=== PATIENT | female | born 1930 | race Caucasian/White ===

== ENCOUNTER 2017-02-14 18:36 | Emergency (ER) | payer OTHER ==
[~2017-02-14] VITALS: Ht 162.6 cm; Wt 52.4 kg
[2017-02-14 19:12] LABS: HEMATOCRIT 47.9 % (34.6-47.8); HEMOGLOBIN 16.2 g/dL (11.7-16.4); WHITE BLOOD COUNT 7.2 x10^3/uL (3.4-10)
[2017-02-14 19:22] LABS: BLOOD UREA NITROGEN 16 mg/dL (7-18)
[2017-02-14] MEDS ORDERED: OXYMETAZOLINE NASAL SPRAY 0.05%, 15ML NAS ONE (20:00)
[2017-02-14] MEDS ORDERED: SILVER NITRATE STICK TP ONE (20:01)
[2017-02-14 20:53] VITALS: BP 175/88
== END 2017-02-14 20:54 | disposition home or self-care (01) ==
LOC: ED 20:25
DX: R04.0 Epistaxis (principal); J44.9 Chronic obstructive pulmonary disease, unspecified
CPT/HCPCS: 30901; 36415; 80048; 82040; 85025; 99284

== ENCOUNTER 2017-03-12 16:42 | Inpatient (IN) | payer OTHER ==
[~2017-03-12] VITALS: Ht 160 cm; Wt 48.2 kg
[2017-03-12] MEDS ORDERED: methylPREDNISolone SOD SUCC 125 MG/2 ML IVP ONE (17:30)
[2017-03-12] MEDS ORDERED: SODIUM CHLORIDE FLUSH 10ML SYR IVF ONE (17:30)
[2017-03-12] MEDS ORDERED: AZITHROMYCIN 500 MG in SODIUM CHLORIDE 0.9% 250 ML IVPB ONE (17:30)
[2017-03-12] MEDS ORDERED: methylPREDNISolone SOD SUCC 125 MG/2 ML ONE (17:45)
[2017-03-12] MEDS ORDERED: ALBUTEROL/IPRATROPIUM 2.5MG/0.5MG, 3 ML ONE (17:51)
[2017-03-12] MEDS ORDERED: ALBUTEROL/IPRATROPIUM 2.5MG/0.5MG, 3 ML NEB ONE (18:00)
[2017-03-12 18:02] LABS: HEMATOCRIT 43.3 % (34.6-47.8); HEMOGLOBIN 14.9 g/dL (11.7-16.4)
[2017-03-12 18:13] LABS: BLOOD UREA NITROGEN 11 mg/dL (7-18)
[2017-03-12 18:20] LABS: IS PT STATUS REG ER OR PRE ER? YES
[2017-03-12] MEDS ORDERED: UMEC1DIS INH (19:03)
[2017-03-12] MEDS ORDERED: IPRA4AER INH (19:07)
[2017-03-12] MEDS ORDERED: POLYETHYLENE GLYCOL 17 GM PACKET PO PRN (20:00)
[2017-03-12] MEDS: HEPARIN 5,000 UNITS/ML, 1ML SQ SCH (20:00)
[2017-03-12] MEDS ORDERED: ACETAMINOPHEN 325 MG TABLET PO PRN (20:00)
[2017-03-12] MEDS: methylPREDNISolone SOD SUCC 125 MG/2 ML IVPush SCH (20:00)
[2017-03-12] MEDS ORDERED: BISACODYL 10 MG SUPP PR PRN (20:00)
[2017-03-12] MEDS ORDERED: MAGNESIUM SULFATE PMX 2GM/50ML 50 ML IV ONE (20:00)
[2017-03-12] MEDS ORDERED: GUAIFENESIN/DM 200-20MG, 10ML UDC PO PRN (20:00)
[2017-03-12] MEDS ORDERED: ONDANSETRON 2MG/ML, 2ML IVPush PRN (20:00)
[2017-03-12] MEDS ORDERED: hydrALAzine 20 MG/ML, 1ML IVPush PRN (20:00)
[2017-03-12] MEDS ORDERED: AZITHROMYCIN 500 MG in SODIUM CHLORIDE 0.9% 250 ML IV SCH (20:00)
[2017-03-12] MEDS: SODIUM CHLORIDE FLUSH 10ML SYR IVF SCH (21:54)
[2017-03-12 22:07] VITALS: BP 207/94
[2017-03-13 00:31] VITALS: BP 181/80
[2017-03-13] MEDS: methylPREDNISolone SOD SUCC 125 MG/2 ML IVPush SCH ×3 (01:36→14:08)
[2017-03-13] MEDS: HEPARIN 5,000 UNITS/ML, 1ML SQ SCH ×2 (01:36→11:45)
[2017-03-13 05:15] LABS: BLOOD UREA NITROGEN 15 mg/dL (7-18); HEMATOCRIT 46.6 % (34.6-47.8); HEMOGLOBIN 15.8 g/dL (11.7-16.4); WHITE BLOOD COUNT 6.4 x10^3/uL (3.4-10)
[2017-03-13 05:19] LABS: ASPARTATE AMINO TRANSFERASE 18 U/L (15-37)
[2017-03-13 07:52] VITALS: BP 160/64
[2017-03-13] MEDS: SODIUM CHLORIDE FLUSH 10ML SYR IVF SCH (08:15)
[2017-03-13] MEDS ORDERED: FLUTICASONE/VILANTEROL 200-25MCG/INH INH SCH (09:00)
[2017-03-13] MEDS ORDERED: SENNA/DOCUSATE TABLET PO SCH (09:00)
[2017-03-13] MEDS ORDERED: DOXY100T PO (11:56)
[2017-03-13] MEDS ORDERED: METH4TAB2 PO (11:56)
[2017-03-13 12:27] VITALS: BP 186/76
[2017-03-13 14:14] VITALS: BP 169/79
== END 2017-03-13 15:00 | disposition home or self-care (01) | DRG 189 ==
LOC: ED 19:50 → EDIP 20:31 → 3NE 20:33 → DCLOUNGE 03-13 14:52
PROVIDERS: ADMIT Surgery; ATTEND Surgery
DX: J96.01 Acute respiratory failure with hypoxia (principal); J44.1 Chronic obstructive pulmonary disease with (acute) exacerbation; I16.0 Hypertensive urgency; Z66 Do not resuscitate; Z87.891 Personal history of nicotine dependence; Z90.710 Acquired absence of both cervix and uterus; Z91.19 Patient's noncompliance with other medical treatment and regimen
CPT/HCPCS: 36415; 71010; 80048; 80053; 82040; 83605; 83880; 84484; 85025; 87040; 93005; 94640; 96365; 96366; 96375; J0456; J7620; J0360; J2930; J3475; J7050

== ENCOUNTER 2018-03-15 16:36 | Inpatient (IN) | payer OTHER ==
[~2018-03-15] VITALS: Ht 165.1 cm; Wt 50.0 kg
[~2018-03-15 16:36] MED LIST: ACET325T14 PO; CHOL10003 PO; DOCU-131 PO; DOXY100T PO; FLUT200B INH; IBUP-1484 PO; IPRA4AER INH; METH4TAB2 PO; UMEC1DIS INH
[2018-03-15] MEDS ORDERED: MORPHINE SULFATE 4 MG/ML, 1ML ONE ×2 (17:23→18:07)
[2018-03-15] MEDS ORDERED: PROMETHAZINE 25 MG/ML, 1ML ONE (17:23)
[2018-03-15] MEDS ORDERED: PROMETHAZINE 25 MG/ML, 1ML IM ONE (17:30)
[2018-03-15] MEDS: MORPHINE SULFATE 4 MG/ML, 1ML IVPush PRN ×2 (17:32→18:09)
--- NOTE | 2018-03-15 17:37 | NUR ---
PT MEDICATED FOR PAIN AND NAUSEA
[2018-03-15 17:52] LABS: BASOPHILS # (AUTO) 0.04 x10^3/uL (0-0.1); BASOPHILS % (AUTO) 0 % (0-1); EOSINOPHILS # (AUTO) 0.17 x10^3/uL (0-0.4); EOSINOPHILS % (AUTO) 1 % (1-7); LYMPHOCYTES # (AUTO) 0.85 x10^3/uL (1-3.4); LYMPHOCYTES % (AUTO) 7 % (22-44); MD NO; MEAN CORPUSCULAR HEMOGLOBIN 32.8 pg (27.0-34.8); MEAN CORPUSCULAR HGB CONC 35.4 g/dL (32.4-35.8); MEAN CORPUSCULAR VOLUME 92.7 fL (80-100); MEAN PLATELET VOLUME 8.1 fL (7.4-10.4); MONOCYTES # (AUTO) 0.25 x10^3/uL (0.2-0.8); MONOCYTES % (AUTO) 2 % (2-9); NEUTROPHILS # (AUTO) 11.53 x10^3/uL (1.8-6.8); NEUTROPHILS % (AUTO) 90 % (42-75); PLATELET COUNT 282 x10^3/uL (130-400); RED BLOOD COUNT 4.48 x10^6/uL (3.82-5.3); RED CELL DISTRIBUTION WIDTH 13.2 % (9.6-15.2)
[2018-03-15 18:01] LABS: ALBUMIN 4.2 g/dL (3.4-5.0); ANION GAP 7 mmol/L (5-15); CALCIUM 9.2 mg/dL (8.5-10.1); CHLORIDE 98 mmol/L (98-107); CREATININE 0.49 mg/dL (0.55-1.02); INTERNATIONAL NORMALIZED RATIO 1.01 (0.93-1.1); PROTHROMBIN TIME 10.7 Seconds (9.6-11.5)
--- NOTE | 2018-03-15 18:03 | NUR ---
PT PLACED ON BEDPAN
[2018-03-15] MEDS ORDERED: TRELEGY ELLIPTA (18:12)
--- NOTE | 2018-03-15 18:19 | NUR ---
PT MEDICATED FOR PAIN
--- NOTE | 2018-03-15 18:31 | NUR ---
granite fabricator AT BEDSIDE APPLYING SPLINTS
--- NOTE | 2018-03-15 19:33 | NUR ---
REPORT GIVEN TO CHAYITO QUEZADA WILL TRANSFER ONCE PIV IS ESTABLISHED
[2018-03-15] MEDS ORDERED: SODIUM CHLORIDE 0.9% 1,000 ML IV SCH (19:54)
[2018-03-15] MEDS ORDERED: morphine SULFATE 10 MG/ML, 1ML IVPush PRN (20:00)
[2018-03-15] MEDS ORDERED: ONDANSETRON 2MG/ML, 2ML IVPush PRN (20:00)
[2018-03-15] MEDS ORDERED: ACETAMINOPHEN 325 MG TABLET PO PRN (20:00)
[2018-03-15] MEDS ORDERED: PROMETHAZINE 25 MG/ML, 1ML IM PRN (20:00)
[2018-03-15] MEDS ORDERED: hydrALAzine 20 MG/ML, 1ML IVPush PRN (20:00)
[2018-03-15] MEDS ORDERED: LABETALOL 5MG/ML, 20ML IVPush PRN (20:00)
[2018-03-15] MEDS ORDERED: BISACODYL 10 MG SUPP PR PRN (20:00)
[2018-03-15] MEDS ORDERED: ONDANSETRON ODT 4 MG PO PRN (20:00)
[2018-03-15 20:13] VITALS: BP 193/75
[2018-03-15 20:30] LABS: FREE T4 (FREE THYROXINE) 1.26 ng/dL (0.76-1.46); THYROID STIMULATING HORMONE 3.57 mIU/L (0.358-3.740)
[2018-03-15 20:34] LABS: HEMOGLOBIN A1C 5.3 % (4.2-6.3)
[2018-03-15] MEDS: HEPARIN 5,000 UNITS/ML, 1ML SQ SCH (20:58)
[2018-03-15] MEDS ORDERED: FLUTICASONE FUROATE 200MCG/INH INH SCH (21:00)
[2018-03-15 21:12] VITALS: BP 176/89
[2018-03-15] MEDS: HYDROcodone/APAP 5/325 TABLET PO PRN (22:36)
[2018-03-15] MEDS: BUDESONIDE 0.5 MG/2 ML INHA NPPB SCH (23:40)
[2018-03-15] MEDS: ALBUTEROL/IPRATROPIUM 2.5MG/0.5MG, 3 ML NPPB SCH (23:40)
[2018-03-16 01:09] VITALS: BP 102/59
[2018-03-16 02:14] VITALS: BP 131/77
[2018-03-16] MEDS: HEPARIN 5,000 UNITS/ML, 1ML SQ SCH ×3 (04:57→20:56)
[2018-03-16 05:39] LABS: ALANINE AMINOTRANSFERASE 24 U/L (12-78); ALBUMIN 3.2 g/dL (3.4-5.0); ANION GAP 8 mmol/L (5-15); CALCIUM 8.4 mg/dL (8.5-10.1); CHLORIDE 101 mmol/L (98-107); CREATININE 0.58 mg/dL (0.55-1.02)
[2018-03-16 05:42] LABS: ALKALINE PHOSPHATASE 82 U/L (45-117); BILIRUBIN,TOTAL 0.6 mg/dL (0.2-1.0); CHOL/HDL RATIO 2.4; CHOLESTEROL, TOTAL 190 mg/dL (140-239); HDL CHOL % 41 % (28-40); HDL CHOLESTEROL (DIRECT) 78 mg/dL (40-60); LDL CHOLESTEROL,CALCULATED 102 mg/dL (54-169); LDL/HDL RATIO 1.3 (0.5-3.0); TOTAL PROTEIN 6.1 g/dL (6.4-8.2); TRIGLYCERIDES 51 mg/dL (50-200); VLDL CHOLESTEROL 10 mg/dL (0-25)
[2018-03-16 05:53] LABS: MEAN CORPUSCULAR HEMOGLOBIN 30.6 pg (27.0-34.8); MEAN CORPUSCULAR HGB CONC 34.1 g/dL (32.4-35.8); MEAN CORPUSCULAR VOLUME 89.7 fL (80-100); MEAN PLATELET VOLUME 8.4 fL (7.4-10.4); PLATELET COUNT 246 x10^3/uL (130-400); RED BLOOD COUNT 4.43 x10^6/uL (3.82-5.3)
[2018-03-16 06:16] LABS: BASOPHILS # (AUTO) 0.01 x10^3/uL (0-0.1); BASOPHILS % (AUTO) 0 % (0-1); EOSINOPHILS % (AUTO) 0 % (1-7); LYMPHOCYTES # (AUTO) 0.73 x10^3/uL (1-3.4); LYMPHOCYTES % (AUTO) 6 % (22-44); MD SCAN; MONOCYTES # (AUTO) 0.55 x10^3/uL (0.2-0.8); MONOCYTES % (AUTO) 5 % (2-9); NEUTROPHILS # (AUTO) 10.22 x10^3/uL (1.8-6.8); NEUTROPHILS % (AUTO) 89 % (42-75)
[2018-03-16] MEDS: BUDESONIDE 0.5 MG/2 ML INHA NPPB SCH ×2 (08:25→21:00)
[2018-03-16] MEDS: ALBUTEROL/IPRATROPIUM 2.5MG/0.5MG, 3 ML NPPB SCH ×3 (08:25→21:00)
[2018-03-16] MEDS: CHOLECALCIFEROL 1,000 UNIT TABLET PO SCH (08:39)
[2018-03-16] MEDS: SENNA/DOCUSATE TABLET PO SCH (08:39)
[2018-03-16 08:44] VITALS: BP 132/85
[2018-03-16] MEDS: HYDROcodone/APAP 5/325 TABLET PO PRN (09:26)
[2018-03-16] MEDS: GABAPENTIN 300 MG CAPSULE PO PRN (10:25)
[2018-03-16] MEDS ORDERED: OXYcodone IR 5MG TABLET PO PRN ×2 (10:30)
[2018-03-16 14:43] VITALS: BP 96/66
[2018-03-16] MEDS: D5%-0.9% NACL 1,000 ML IV SCH (17:36)
[2018-03-16 19:41] VITALS: BP 125/60
[2018-03-17 00:33] VITALS: BP 138/63
[2018-03-17] MEDS: D5%-0.9% NACL 1,000 ML IV SCH ×3 (02:46→17:29)
[2018-03-17] MEDS: HEPARIN 5,000 UNITS/ML, 1ML SQ SCH ×3 (05:30→21:47)
[2018-03-17 06:05] LABS: MEAN CORPUSCULAR HEMOGLOBIN 30.7 pg (27.0-34.8); MEAN CORPUSCULAR HGB CONC 33.8 g/dL (32.4-35.8); MEAN CORPUSCULAR VOLUME 90.8 fL (80-100); MEAN PLATELET VOLUME 9.3 fL (7.4-10.4); PLATELET COUNT 230 x10^3/uL (130-400); RED BLOOD COUNT 4.06 x10^6/uL (3.82-5.3)
[2018-03-17 06:29] LABS: BASOPHILS # (AUTO) 0.03 x10^3/uL (0-0.1); BASOPHILS % (AUTO) 0 % (0-1); EOSINOPHILS % (AUTO) 0 % (1-7); LYMPHOCYTES # (AUTO) 0.77 x10^3/uL (1-3.4); LYMPHOCYTES % (AUTO) 6 % (22-44); MD SCAN; MONOCYTES # (AUTO) 0.63 x10^3/uL (0.2-0.8); MONOCYTES % (AUTO) 5 % (2-9); NEUTROPHILS # (AUTO) 11.12 x10^3/uL (1.8-6.8); NEUTROPHILS % (AUTO) 89 % (42-75)
[2018-03-17 07:10] VITALS: BP 142/69
[2018-03-17] MEDS: ALBUTEROL/IPRATROPIUM 2.5MG/0.5MG, 3 ML NPPB SCH ×4 (07:46→19:13)
[2018-03-17] MEDS: BUDESONIDE 0.5 MG/2 ML INHA NPPB SCH ×2 (07:47→19:13)
[2018-03-17] MEDS: CHOLECALCIFEROL 1,000 UNIT TABLET PO SCH (09:17)
[2018-03-17] MEDS: SENNA/DOCUSATE TABLET PO SCH (09:17)
[2018-03-17 12:30] VITALS: BP 136/72
[2018-03-17 20:02] VITALS: BP 155/59
[2018-03-18 02:29] VITALS: BP 149/78
[2018-03-18] MEDS: HEPARIN 5,000 UNITS/ML, 1ML SQ SCH ×3 (04:27→23:28)
[2018-03-18] MEDS: D5%-0.9% NACL 1,000 ML IV SCH (04:27)
[2018-03-18 07:28] VITALS: BP 130/80
[2018-03-18] MEDS: SENNA/DOCUSATE TABLET PO SCH (08:27)
[2018-03-18] MEDS: CHOLECALCIFEROL 1,000 UNIT TABLET PO SCH (08:27)
[2018-03-18] MEDS: POLYETHYLENE GLYCOL 17 GM PACKET PO PRN (08:27)
[2018-03-18] MEDS ORDERED: GABA300C10 PO (08:30)
[2018-03-18] MEDS ORDERED: OXYC5TAB3 PO (08:30)
[2018-03-18] MEDS: ALBUTEROL/IPRATROPIUM 2.5MG/0.5MG, 3 ML NPPB SCH ×4 (09:00→21:00)
[2018-03-18] MEDS: BUDESONIDE 0.5 MG/2 ML INHA NPPB SCH ×2 (09:00→21:00)
[2018-03-18] MEDS: BACITRACIN OPHTH OINT 500U/GM, 3.5 GM EACHEYE SCH ×3 (11:39→23:28)
[2018-03-18] MEDS: TAMSULOSIN 0.4 MG CAP.ER.24H PO SCH (12:49)
[2018-03-18 13:45] VITALS: BP 144/78
[2018-03-18] MEDS ORDERED: ACETAMINOPHEN 500 MG TABLET PO PRN (16:00)
[2018-03-18] MEDS: IBUPROFEN 200 MG TABLET PO PRN (16:08)
[2018-03-18 16:31] LABS: MICROSCOPIC AUTO
[2018-03-18 16:34] LABS: CULTURE INDICATED? NO
[2018-03-18 20:30] VITALS: BP 170/70
[2018-03-19] MEDS: HEPARIN 5,000 UNITS/ML, 1ML SQ SCH ×3 (05:00→20:52)
[2018-03-19] MEDS: ALBUTEROL/IPRATROPIUM 2.5MG/0.5MG, 3 ML NPPB SCH ×4 (06:00→19:01)
[2018-03-19 07:14] VITALS: BP 160/67
[2018-03-19 07:41] VITALS: BP 149/79
[2018-03-19] MEDS: BUDESONIDE 0.5 MG/2 ML INHA NPPB SCH ×3 (09:00→19:01)
[2018-03-19] MEDS: CHOLECALCIFEROL 1,000 UNIT TABLET PO SCH (09:14)
[2018-03-19] MEDS: TAMSULOSIN 0.4 MG CAP.ER.24H PO SCH (09:14)
[2018-03-19] MEDS: SENNA/DOCUSATE TABLET PO SCH (09:15)
[2018-03-19] MEDS: BACITRACIN OPHTH OINT 500U/GM, 3.5 GM EACHEYE SCH ×3 (09:18→20:52)
[2018-03-19] MEDS: IBUPROFEN 200 MG TABLET PO PRN ×2 (09:21→16:13)
[2018-03-19 12:40] VITALS: BP 125/59
[2018-03-19] MEDS: D5%-0.9% NACL 1,000 ML IV SCH (14:23)
[2018-03-19 19:34] VITALS: BP 115/71
[2018-03-19] MEDS ORDERED: QUETIAPINE 25MG TABLET PO SCH (21:00)
[2018-03-20 01:50] VITALS: BP 131/82
[2018-03-20] MEDS: D5%-0.9% NACL 1,000 ML IV SCH (03:40)
[2018-03-20] MEDS: ALBUTEROL/IPRATROPIUM 2.5MG/0.5MG, 3 ML NPPB SCH ×3 (06:00→14:45)
[2018-03-20] MEDS: IBUPROFEN 200 MG TABLET PO PRN (06:02)
[2018-03-20] MEDS: HEPARIN 5,000 UNITS/ML, 1ML SQ SCH ×2 (06:02→12:57)
[2018-03-20 06:25] LABS: ALBUMIN 2.4 g/dL (3.4-5.0); CALCIUM 8.2 mg/dL (8.5-10.1); CHLORIDE 98 mmol/L (98-107); CREATININE 0.28 mg/dL (0.55-1.02)
[2018-03-20 06:33] LABS: ANION GAP 3 mmol/L (5-15)
[2018-03-20 06:53] VITALS: BP 135/75
[2018-03-20] MEDS: CHOLECALCIFEROL 1,000 UNIT TABLET PO SCH (07:58)
[2018-03-20] MEDS: SENNA/DOCUSATE TABLET PO SCH (07:58)
[2018-03-20] MEDS: GABAPENTIN 300 MG CAPSULE PO PRN ×2 (07:58→15:54)
[2018-03-20] MEDS: POLYETHYLENE GLYCOL 17 GM PACKET PO PRN (07:58)
[2018-03-20] MEDS: TAMSULOSIN 0.4 MG CAP.ER.24H PO SCH (07:58)
[2018-03-20] MEDS: POTASSIUM CHLORIDE 20 MEQ TAB.ER.PRT PO SCH ×2 (08:07→12:56)
[2018-03-20 08:14] LABS: MEAN CORPUSCULAR HEMOGLOBIN 32.3 pg (27.0-34.8); MEAN CORPUSCULAR HGB CONC 34.5 g/dL (32.4-35.8); MEAN CORPUSCULAR VOLUME 93.7 fL (80-100); MEAN PLATELET VOLUME 8.5 fL (7.4-10.4); PLATELET COUNT 261 x10^3/uL (130-400); RED BLOOD COUNT 3.31 x10^6/uL (3.82-5.3); RED CELL DISTRIBUTION WIDTH 12.6 % (9.6-15.2)
[2018-03-20] MEDS: BUDESONIDE 0.5 MG/2 ML INHA NPPB SCH (09:00)
[2018-03-20] MEDS ORDERED: MAGNESIUM OXIDE 400 MG TABLET PO SCH (09:00)
[2018-03-20 09:06] LABS: BASOPHILS # (AUTO) 0.02 x10^3/uL (0-0.1); BASOPHILS % (AUTO) 0 % (0-1); EOSINOPHILS % (AUTO) 2 % (1-7); LYMPHOCYTES # (AUTO) 0.63 x10^3/uL (1-3.4); LYMPHOCYTES % (AUTO) 11 % (22-44); MD SCAN; MONOCYTES # (AUTO) 0.54 x10^3/uL (0.2-0.8); MONOCYTES % (AUTO) 9 % (2-9); NEUTROPHILS # (AUTO) 4.56 x10^3/uL (1.8-6.8); NEUTROPHILS % (AUTO) 78 % (42-75)
[2018-03-20] MEDS ORDERED: QUET25TA5 PO (11:44)
[2018-03-20] MEDS ORDERED: TAMS-11 PO (11:44)
[2018-03-20 12:29] VITALS: BP 116/68
[2018-03-20 12:42] VITALS: BP 116/68
[2018-03-20] MEDS: BACITRACIN OPHTH OINT 500U/GM, 3.5 GM EACHEYE SCH ×2 (12:58→15:58)
[2018-03-20 16:05] VITALS: BP 155/78
[2018-03-20 16:50] VITALS: BP 138/85
== END 2018-03-20 17:16 | DRG 542 ==
LOC: ED 19:33 → EDIP 19:59 → 4NOR 20:00
PROVIDERS: ADMIT Internal Medicine; ATTEND Hospitalist
PROC: 2W3CX1Z Immobilization of Right Lower Arm using Splint (ICD-10-PCS; principal; 2018-03-15)
PROC: 0T9B70Z Drainage of Bladder with Drainage Device, Via Natural or Artificial Opening (ICD-10-PCS; 2018-03-18)
DX: M84.433A Pathological fracture, right radius, initial encounter for fracture (principal); R65.11 Systemic inflammatory response syndrome (SIRS) of non-infectious origin with acute organ dysfunction; F03.91 Unspecified dementia, unspecified severity, with behavioral disturbance; F05 Delirium due to known physiological condition; J44.9 Chronic obstructive pulmonary disease, unspecified; E55.9 Vitamin D deficiency, unspecified; Z66 Do not resuscitate; Z96.641 Presence of right artificial hip joint; R53.81 Other malaise; W18.39XA Other fall on same level, initial encounter; Y93.89 Activity, other specified; Y92.89 Other specified places as the place of occurrence of the external cause; Y99.8 Other external cause status; Z87.891 Personal history of nicotine dependence; Z90.710 Acquired absence of both cervix and uterus; M84.431A Pathological fracture, right ulna, initial encounter for fracture
CPT/HCPCS: 36415; 70450; 71045; 80048; 80053; 80061; 81001; 82040; 83036; 83735; 84100; 84439; 84443; 85025; 85610; 85730; 94640; 96372; 96374; 96376; 99285; G0378; J1644; J2550; J7042; J7620; J7626; 92523-GN; J0360; J7030

== ENCOUNTER 2018-04-25 11:30 | Inpatient (IN) | payer MEDICARE, OTHER ==
[~2018-04-25] VITALS: Ht 165.1 cm; Wt 44.3 kg
[~2018-04-25 11:30] MED LIST changes: +GABA300C10 PO; +OXYC5TAB3 PO; +QUET25TA5 PO; +TAMS-11 PO; +TRELEGY ELLIPTA
[2018-04-25] MEDS ORDERED: ALBUTEROL/IPRATROPIUM 2.5MG/0.5MG, 3 ML ONE (11:45)
[2018-04-25] MEDS: ALBUTEROL/IPRATROPIUM 2.5MG/0.5MG, 3 ML NPPB SCH ×3 (11:45→20:00)
[2018-04-25] MEDS ORDERED: SODIUM CHLORIDE FLUSH 10ML SYR IVF ONE (12:00)
[2018-04-25] MEDS ORDERED: methylPREDNISolone SOD SUCC 125 MG/2 ML IVP ONE (12:00)
[2018-04-25 12:11] LABS: BASOPHILS # (AUTO) 0.02 x10^3/uL (0-0.1); BASOPHILS % (AUTO) 0 % (0-1); EOSINOPHILS % (AUTO) 0 % (1-7); LYMPHOCYTES # (AUTO) 1.12 x10^3/uL (1-3.4); LYMPHOCYTES % (AUTO) 9 % (22-44); MD NO; MEAN CORPUSCULAR HEMOGLOBIN 30.2 pg (27.0-34.8); MEAN CORPUSCULAR VOLUME 91.5 fL (80-100); MEAN PLATELET VOLUME 8.1 fL (7.4-10.4); MONOCYTES # (AUTO) 0.96 x10^3/uL (0.2-0.8); MONOCYTES % (AUTO) 8 % (2-9); NEUTROPHILS # (AUTO) 10.73 x10^3/uL (1.8-6.8); NEUTROPHILS % (AUTO) 84 % (42-75); PLATELET COUNT 333 x10^3/uL (130-400); RED CELL DISTRIBUTION WIDTH 12.7 % (9.6-15.2)
[2018-04-25 12:21] LABS: INTERNATIONAL NORMALIZED RATIO 1.01 (0.93-1.1); PROTHROMBIN TIME 10.7 Seconds (9.6-11.5)
[2018-04-25 12:41] LABS: ALANINE AMINOTRANSFERASE 19 U/L (12-78); ALBUMIN 2.9 g/dL (3.4-5.0); ANION GAP 3 mmol/L (5-15); CALCIUM 8.9 mg/dL (8.5-10.1); CHLORIDE 90 mmol/L (98-107); CREATININE 0.37 mg/dL (0.55-1.02)
[2018-04-25] MEDS ORDERED: methylPREDNISolone SOD SUCC 125 MG/2 ML ONE (12:42)
[2018-04-25 12:45] LABS: ALKALINE PHOSPHATASE 93 U/L (45-117); BILIRUBIN,TOTAL 0.2 mg/dL (0.2-1.0); TOTAL PROTEIN 6.5 g/dL (6.4-8.2); TROPONIN I < 0.015 ng/mL (0.000-0.045)
[2018-04-25] MEDS ORDERED: SODIUM CHLORIDE FLUSH 10ML SYR IVF PRN (13:30)
[2018-04-25] MEDS ORDERED: PHARMACY MAY ADJ FOR RENAL FX MC PRN (14:30)
[2018-04-25] MEDS ORDERED: ACETAMINOPHEN 325 MG TABLET PO PRN (14:30)
--- NOTE | 2018-04-25 14:44 | NUR ---
PT'S LOC UPGRADED BY HOSPITALIST, REPORT TO TELE 2 CALLED TO CHAYITO BELLE TO ADMINISTER MEDS PRIOR TO TRANSPORT TO FLOOR
[2018-04-25] MEDS ORDERED: methylPREDNISolone SOD SUCC 40 MG/ML ONE (14:47)
[2018-04-25] MEDS ORDERED: CEFTRIAXONE PMX 2GM/50ML 50 ML ONE (14:47)
[2018-04-25] MEDS ORDERED: ENOXAPARIN 40 MG/0.4 ML ONE (14:47)
[2018-04-25] MEDS: methylPREDNISolone SOD SUCC 40 MG/ML IV SCH ×2 (14:52→22:22)
[2018-04-25] MEDS: ENOXAPARIN 40 MG/0.4 ML SQ SCH (14:53)
[2018-04-25] MEDS: CEFTRIAXONE PMX 2GM/50ML 50 ML IVPB SCH (14:57)
[2018-04-25] MEDS ORDERED: FUROSEMIDE 20 MG/2 ML IV ONE (15:00)
[2018-04-25 15:12] LABS: THYROID STIMULATING HORMONE 1.15 mIU/L (0.358-3.740)
--- NOTE | 2018-04-25 16:11 | NUR ---
PT TO CCU ON MONITOR VIA RIANNA BY RN AT THIS TIME
[2018-04-25] MEDS: DOXYCYCLINE 100 MG in DEXTROSE 5% 250 ML IV SCH (17:45)
[2018-04-25] MEDS: BUDESONIDE 0.5 MG/2 ML INHA INH SCH (20:03)
[2018-04-25] MEDS: QUETIAPINE 25MG TABLET PO SCH (20:22)
[2018-04-25] MEDS: GUAIFENESIN 200 MG TABLET PO SCH (20:22)
[2018-04-26 04:12] VITALS: BP 116/54
[2018-04-26 04:15] VITALS: BP 116/54
[2018-04-26] MEDS: DOXYCYCLINE 100 MG in DEXTROSE 5% 250 ML IV SCH ×2 (04:37→17:03)
[2018-04-26 04:38] LABS: ANION GAP 6 mmol/L (5-15); CHLORIDE 90 mmol/L (98-107)
[2018-04-26 04:40] LABS: CREATININE 0.52 mg/dL (0.55-1.02)
[2018-04-26 04:50] LABS: MD YES; MEAN CORPUSCULAR HEMOGLOBIN 31.7 pg (27.0-34.8); MEAN CORPUSCULAR HGB CONC 33.9 g/dL (32.4-35.8); MEAN CORPUSCULAR VOLUME 93.5 fL (80-100); PLATELET COUNT 195 x10^3/uL (130-400); RED BLOOD COUNT 3.93 x10^6/uL (3.82-5.3)
[2018-04-26 04:51] LABS: LYMPH#(MANUAL) 0.26 x10^3/uL (1-3.4); LYMPHS% (MANUAL) 3 % (22-44); MONOS#(MANUAL) 0.17 x10^3/uL (0.3-2.7); MONOS% (MANUAL) 2 % (2-9); SEG#(MANUAL) 8.17 x10^3/uL (1.8-6.8); SEGS% (MANUAL) 95 % (42-75)
[2018-04-26 04:52] LABS: <PLATELET ESTIMATE> ADEQUATE; <PLT MORPHOLOGY> NORMAL PLT MORPH; <RBC MORPHOLOGY> NORMAL
[2018-04-26] MEDS: GUAIFENESIN 200 MG TABLET PO SCH ×4 (05:49→20:23)
[2018-04-26] MEDS: methylPREDNISolone SOD SUCC 40 MG/ML IV SCH (05:49)
[2018-04-26] MEDS: BUDESONIDE 0.5 MG/2 ML INHA INH SCH ×2 (07:05→19:40)
[2018-04-26] MEDS: ALBUTEROL/IPRATROPIUM 2.5MG/0.5MG, 3 ML NPPB SCH ×5 (07:05→23:00)
[2018-04-26] MEDS: TAMSULOSIN 0.4 MG CAP.ER.24H PO SCH (10:11)
--- NOTE | 2018-04-26 14:06 | NUR ---
ICT SUPPORT TECHNICIANS recommend: CHOPPED/ THINS (due to poor ability to manage food) -No straws -Up at 90 degrees -Small bites [place] sheet posted Addendum: 04/26/18 at [address] Amended: Links added.
[2018-04-26] MEDS: ENOXAPARIN 40 MG/0.4 ML SQ SCH (15:20)
[2018-04-26] MEDS: CEFTRIAXONE PMX 2GM/50ML 50 ML IVPB SCH (15:20)
[2018-04-26] MEDS: QUETIAPINE 25MG TABLET PO SCH (20:23)
[2018-04-26 23:12] VITALS: BP 130/68
[2018-04-27 01:59] VITALS: BP 137/69
[2018-04-27] MEDS: ALBUTEROL/IPRATROPIUM 2.5MG/0.5MG, 3 ML NPPB SCH ×6 (04:00→22:17)
[2018-04-27] MEDS: DOXYCYCLINE 100 MG in DEXTROSE 5% 250 ML IV SCH ×2 (04:55→16:57)
[2018-04-27] MEDS: GUAIFENESIN 200 MG TABLET PO SCH ×4 (04:59→20:09)
[2018-04-27 05:15] LABS: BASOPHILS # (AUTO) 0.01 x10^3/uL (0-0.1); BASOPHILS % (AUTO) 0 % (0-1); EOSINOPHILS % (AUTO) 0 % (1-7); LYMPHOCYTES # (AUTO) 1.03 x10^3/uL (1-3.4); LYMPHOCYTES % (AUTO) 10 % (22-44); MD NO; MEAN CORPUSCULAR HEMOGLOBIN 29.9 pg (27.0-34.8); MEAN CORPUSCULAR VOLUME 90.8 fL (80-100); MEAN PLATELET VOLUME 8.2 fL (7.4-10.4); MONOCYTES # (AUTO) 0.74 x10^3/uL (0.2-0.8); MONOCYTES % (AUTO) 7 % (2-9); NEUTROPHILS # (AUTO) 8.53 x10^3/uL (1.8-6.8); NEUTROPHILS % (AUTO) 83 % (42-75); PLATELET COUNT 374 x10^3/uL (130-400); RED BLOOD COUNT 3.83 x10^6/uL (3.82-5.3); RED CELL DISTRIBUTION WIDTH 12.6 % (9.6-15.2)
[2018-04-27 05:27] LABS: ANION GAP 5 mmol/L (5-15); CALCIUM 9.2 mg/dL (8.5-10.1); CHLORIDE 88 mmol/L (98-107)
[2018-04-27 08:00] VITALS: BP 161/75
[2018-04-27] MEDS: TAMSULOSIN 0.4 MG CAP.ER.24H PO SCH (08:12)
[2018-04-27] MEDS: GABAPENTIN 300 MG CAPSULE PO PRN (08:22)
[2018-04-27] MEDS ORDERED: MAGNESIUM SULFATE PMX 2GM/50ML 50 ML IV ONE (09:30)
[2018-04-27] MEDS: BUDESONIDE 0.5 MG/2 ML INHA INH SCH ×2 (10:20→19:26)
[2018-04-27] MEDS: CEFTRIAXONE PMX 2GM/50ML 50 ML IVPB SCH (15:16)
[2018-04-27] MEDS: ENOXAPARIN 40 MG/0.4 ML SQ SCH (15:18)
[2018-04-27 15:19] VITALS: BP 151/70
[2018-04-27 19:17] VITALS: BP 154/71
[2018-04-27] MEDS: QUETIAPINE 25MG TABLET PO SCH (20:09)
[2018-04-28] MEDS: ALBUTEROL/IPRATROPIUM 2.5MG/0.5MG, 3 ML NPPB SCH ×6 (02:41→23:00)
[2018-04-28 02:42] VITALS: BP 149/77
[2018-04-28 05:10] LABS: BASOPHILS # (AUTO) 0.02 x10^3/uL (0-0.1); BASOPHILS % (AUTO) 0 % (0-1); EOSINOPHILS # (AUTO) 0.01 x10^3/uL (0-0.4); EOSINOPHILS % (AUTO) 0 % (1-7); LYMPHOCYTES # (AUTO) 0.97 x10^3/uL (1-3.4); LYMPHOCYTES % (AUTO) 16 % (22-44); MD NO; MEAN CORPUSCULAR HEMOGLOBIN 30.2 pg (27.0-34.8); MEAN CORPUSCULAR HGB CONC 33.4 g/dL (32.4-35.8); MEAN CORPUSCULAR VOLUME 90.5 fL (80-100); MEAN PLATELET VOLUME 8.4 fL (7.4-10.4); MONOCYTES # (AUTO) 0.35 x10^3/uL (0.2-0.8); MONOCYTES % (AUTO) 6 % (2-9); NEUTROPHILS # (AUTO) 4.57 x10^3/uL (1.8-6.8); NEUTROPHILS % (AUTO) 77 % (42-75); PLATELET COUNT 358 x10^3/uL (130-400); RED BLOOD COUNT 3.99 x10^6/uL (3.82-5.3); RED CELL DISTRIBUTION WIDTH 12.9 % (9.6-15.2)
[2018-04-28 05:12] LABS: ANION GAP 4 mmol/L (5-15); CALCIUM 8.7 mg/dL (8.5-10.1); CHLORIDE 90 mmol/L (98-107); CREATININE 0.39 mg/dL (0.55-1.02)
[2018-04-28] MEDS: DOXYCYCLINE 100 MG in DEXTROSE 5% 250 ML IV SCH ×3 (05:15→20:28)
[2018-04-28] MEDS: GUAIFENESIN 200 MG TABLET PO SCH ×4 (05:19→20:28)
[2018-04-28] MEDS: BUDESONIDE 0.5 MG/2 ML INHA INH SCH ×2 (06:56→19:01)
[2018-04-28 07:53] VITALS: BP 148/74
[2018-04-28] MEDS: TAMSULOSIN 0.4 MG CAP.ER.24H PO SCH (09:49)
[2018-04-28] MEDS ORDERED: OMNIPAQUE 350 MG/ML, 100ML BOTTLE ONE (11:20)
[2018-04-28 14:00] VITALS: BP 170/64
[2018-04-28] MEDS: CEFTRIAXONE PMX 2GM/50ML 50 ML IVPB SCH (16:31)
[2018-04-28] MEDS: ENOXAPARIN 40 MG/0.4 ML SQ SCH (16:31)
[2018-04-28 19:30] VITALS: BP 140/73
[2018-04-28] MEDS: QUETIAPINE 25MG TABLET PO SCH (20:28)
[2018-04-29 00:26] VITALS: BP 138/76
[2018-04-29] MEDS: ALBUTEROL/IPRATROPIUM 2.5MG/0.5MG, 3 ML NPPB SCH ×6 (02:50→23:00)
[2018-04-29] MEDS: GABAPENTIN 300 MG CAPSULE PO PRN (02:53)
[2018-04-29] MEDS: GUAIFENESIN 200 MG TABLET PO SCH ×4 (04:10→21:40)
[2018-04-29] MEDS: TAMSULOSIN 0.4 MG CAP.ER.24H PO SCH (08:04)
[2018-04-29 08:35] VITALS: BP 136/67
[2018-04-29] MEDS: BUDESONIDE 0.5 MG/2 ML INHA INH SCH ×2 (09:00→19:14)
[2018-04-29] MEDS: DOXYCYCLINE 100MG TABLET PO SCH ×2 (11:08→23:02)
[2018-04-29] MEDS ORDERED: CEFD300C37 PO (12:11)
[2018-04-29] MEDS ORDERED: DOXY100T PO (12:11)
[2018-04-29] MEDS ORDERED: PRED20TA PO (12:11)
[2018-04-29 13:47] VITALS: BP 153/70
[2018-04-29] MEDS ORDERED: FUROSEMIDE 40 MG/4 ML ONE (15:36)
[2018-04-29] MEDS: ENOXAPARIN 40 MG/0.4 ML SQ SCH (15:41)
[2018-04-29] MEDS: CEFTRIAXONE PMX 2GM/50ML 50 ML IVPB SCH (15:42)
[2018-04-29] MEDS ORDERED: FUROSEMIDE 20 MG/2 ML IV ONE (16:00)
[2018-04-29] MEDS ORDERED: LORazepam 2 MG/ML, 1ML IVPush PRN (17:00)
[2018-04-29 18:54] VITALS: BP 125/67
[2018-04-29] MEDS: QUETIAPINE 25MG TABLET PO SCH (21:40)
[2018-04-30 01:52] VITALS: BP 130/67
[2018-04-30] MEDS: ALBUTEROL/IPRATROPIUM 2.5MG/0.5MG, 3 ML NPPB SCH ×4 (03:30→13:58)
[2018-04-30] MEDS: GUAIFENESIN 200 MG TABLET PO SCH ×2 (06:00→11:32)
[2018-04-30] MEDS: BUDESONIDE 0.5 MG/2 ML INHA INH SCH (06:37)
[2018-04-30 06:45] VITALS: BP 138/73
[2018-04-30] MEDS ORDERED: CEFD300C37 PO (08:04)
[2018-04-30] MEDS ORDERED: PRED20TA PO (08:04)
[2018-04-30] MEDS ORDERED: DOXY100T PO (08:04)
[2018-04-30] MEDS: TAMSULOSIN 0.4 MG CAP.ER.24H PO SCH (08:41)
[2018-04-30] MEDS: DOXYCYCLINE 100MG TABLET PO SCH (11:00)
[2018-04-30 13:00] VITALS: BP 122/65
[2018-04-30] MEDS ORDERED: ENOXAPARIN 30 MG/0.3 ML SQ SCH (15:00)
== END 2018-04-30 14:57 | disposition hospice, home (50) | DRG 871 ==
LOC: ED 13:06 → EDIP 13:11 → ED 13:34 → CCU 16:22 → 3NW 04-26 23:10
PROVIDERS: ADMIT Hospitalist; ATTEND Hospitalist
DX: A41.9 Sepsis, unspecified organism (principal); G93.41 Metabolic encephalopathy; J96.22 Acute and chronic respiratory failure with hypercapnia; J18.9 Pneumonia, unspecified organism; J96.21 Acute and chronic respiratory failure with hypoxia; J44.1 Chronic obstructive pulmonary disease with (acute) exacerbation; J44.0 Chronic obstructive pulmonary disease with (acute) lower respiratory infection; E87.1 Hypo-osmolality and hyponatremia; E44.0 Moderate protein-calorie malnutrition; I50.32 Chronic diastolic (congestive) heart failure; Z68.1 Body mass index [BMI] 19.9 or less, adult; Z66 Do not resuscitate; R53.81 Other malaise; E55.9 Vitamin D deficiency, unspecified; R33.9 Retention of urine, unspecified; F40.240 Claustrophobia; Z96.641 Presence of right artificial hip joint; Z51.5 Encounter for palliative care; Z82.49 Family history of ischemic heart disease and other diseases of the circulatory system; Z90.49 Acquired absence of other specified parts of digestive tract; Z90.710 Acquired absence of both cervix and uterus; Z87.891 Personal history of nicotine dependence; Z91.81 History of falling; Z99.81 Dependence on supplemental oxygen
CPT/HCPCS: 36415; 36600; 71045; 71275; 80048; 80053; 82803; 83605; 83735; 83880; 84100; 84443; 84484; 85025; 85610; 85730; 87040; 87081; 93005; 93306; 94640; 96374; 99285; G0378; J0696; J1650; J7060; J7620; J7626; Q9967; J1940; J2060; J2920; J2930; J3475; J7512